=== PATIENT | male | born 1950 | race Caucasian/White ===

== ENCOUNTER 2020-12-21 21:40 | Emergency (ER) | payer OTHER ==
[~2020-12-21] VITALS: Ht 180.3 cm; Wt 93.0 kg
[~2020-12-21 21:40] MED LIST: ALBUTEROL INH IH; ANDROGEL5 GM TD; LORTAB PO
[2020-12-21] MEDS ORDERED: SYNTHROID75 MC1 PO (21:55)
[2020-12-21] MEDS ORDERED: HYDROCHLOROTHIA25 M1 PO (21:55)
[2020-12-21] MEDS ORDERED: PRINIVIL20 M1 PO (21:55)
[2020-12-21] MEDS ORDERED: DOXYCYCLINE 10100 MG PO (22:52)
[2020-12-21 22:59] VITALS: BP 124/70
== END 2020-12-21 22:59 | disposition home or self-care (01) ==
LOC: M.ERS 21:40
DX: S30.860A Insect bite (nonvenomous) of lower back and pelvis, initial encounter (principal); S20.461A Insect bite (nonvenomous) of right back wall of thorax, initial encounter; J45.909 Unspecified asthma, uncomplicated; Z88.5 Allergy status to narcotic agent; Z91.040 Latex allergy status; Z88.0 Allergy status to penicillin; W57.XXXA Bitten or stung by nonvenomous insect and other nonvenomous arthropods, initial encounter; Y93.89 Activity, other specified; Y92.89 Other specified places as the place of occurrence of the external cause; Y99.8 Other external cause status